=== PATIENT | female | born 1970 | race Caucasian/White ===

== ENCOUNTER 2025-04-10 18:15 | Emergency (ER) | payer OTHER ==
[~2025-04-10] VITALS: Ht 160 cm; Wt 109.1 kg
[2025-04-10 18:29] VITALS: TEMP 99.1
[2025-04-10 18:52] LABS: PLATELET COUNT (AUTO) 307 K/uL (150-450); RED BLOOD CELL COUNT(AUTO) 4.44 MIL/uL (4.00-5.20); RED CELL DISTRIBUTION WIDTH 13.0 % (11.5-14.5); WHITE BLOOD COUNT (AUTO) 7.9 K/uL (4.5-11.0)
[2025-04-10 18:55] LABS: COVID AG,FIA SOURCE NASAL SWAB
[2025-04-10 19:04] LABS: INFLUENZA TYPE A NEGATIVE FOR TYPE A (NEGATIVE); INFLUENZA TYPE B NEGATIVE FOR TYPE B (NEGATIVE); SARS-COV2 (COVID) ANTIGEN,FIA Negative (Negative)
[2025-04-10 19:07] LABS: CALCIUM, TOTAL 8.7 mg/dL (8.8-10.5); CREATININE 0.53 mg/dL (0.60-1.30); GLOMERULAR FILTR. RATE CALC > 60 mL/min (>60); GLUCOSE,RANDOM 119 mg/dL (70-110); SODIUM SERUM 141 mmol/L (136-145); UREA NITROGEN, BLOOD 19 mg/dL (7-18)
[2025-04-10 19:14] LABS: TROPONIN I-HIGH SENSITIVITY 12 ng/L (<51)
[2025-04-10] MEDS: IPRATROPIUM BROMIDE 0.5 MG/2.5 ML NEB SOLUTION NEB ONE (22:25)
[2025-04-10] MEDS: ALBUTEROL SULFATE 2.5 MG/0.5 ML NEB SOLUTION NEB ONE (22:26)
[2025-04-10 22:30] VITALS: PULSE 92; RESP 20; O2SAT 94
[2025-04-10 22:45] VITALS: PULSE 89; RESP 20; O2SAT 95
[2025-04-10] MEDS ORDERED: BENZ-227 PO (23:17)
[2025-04-10] MEDS ORDERED: AZIT250T9 PO (23:17)
[2025-04-10 23:40] VITALS: BP 123/55; PULSE 102; RESP 20; O2SAT 95
== END 2025-04-10 23:44 | disposition home or self-care (01) ==
LOC: EMS 18:15
DX: J18.0 Bronchopneumonia, unspecified organism (principal); R05.9 Cough, unspecified; R09.81 Nasal congestion; Z98.890 Other specified postprocedural states; Z88.4 Allergy status to anesthetic agent; Z91.013 Allergy to seafood; Z20.822 Contact with and (suspected) exposure to COVID-19
CPT/HCPCS: 71045; 80048; 83880; 84484; 85025; 87081; 87430; 87804; 93005; 94640; 99285; 36415-L1; 36415-TC; J7613